=== PATIENT | female | born 1935 | race Caucasian/White ===

== ENCOUNTER → 2018-10-10 | Outpatient (CLI) | payer MEDICARE, BC, SELFPAY ==
[2018-09-22 12:45] VITALS: BMI 27.8
--- NOTE | 2018-10-10 13:26 | ECHOD_ITS ---
Reason For Study: HTN Procedure This was a 2D Doppler, Color Flow transthoracic echocardiogram. Exam performed in department. Left Ventricle Normal LV size. Left ventricular systolic function is normal. The estimated ejection fraction is 60 %. Stage 2 diastolic dysfunction. No regional wall motion abnormalities noted. Right Ventricle Normal RV size. Normal systolic function. Atria Normal left atrium. Normal right atrium. Mitral Valve Normal mitral valve. Mild (1+) eccentric mitral valve insufficiency. Tricuspid Valve Normal tricuspid valve. Pulmonic Valve Normal pulmonic valve. Great Vessels Normal aortic root. The pulmonary artery is normal size. Normal inferior vena cava. Pericardium/Pleural No pericardial effusion. MMode/2D Measurements & Calculations LVIDd: 4.7 cm IVSd: 1.1 cm Ao root diam: 3.2 cm LVIDs: 3.4 cm LVPWd: 0.98 cm RVDd: 3.7 cm FS: 28.9 % LAV(MOD-bp): 59.0 ml LA A4 area: 18.1 cm2 LA dimension(2D): 3.4 cm LAV(MOD-bp) Indexed: 34.7 ml/m2 LAV(MOD-sp2): 65.1 ml LAV(MOD-sp4): 50.9 ml RA A4 area: 15.0 cm2 Time Measurements MV dec time: 0.20 sec Doppler Measurements & Calculations MV E max asher: 104.2 cm/sec Lat Peak E' Asher: 7.3 cm/sec Med Peak E' Asher: 7.0 cm/sec MV A max asher: 125.7 cm/sec E/E' lat: 14.3 E/E' med: 14.8 MV E/A: 0.83 Ao V2 max: 139.9 cm/sec LV V1 max: 88.0 cm/sec PA V2 max: 68.5 cm/sec Ao max P.8 mmHg LV V1 max P.1 mmHg TR max asher: 260.6 cm/sec TR max P.4 mmHg Interpretation Summary Normal LV size. Left ventricular systolic function is normal. The estimated ejection fraction is 60 %. Stage 2 diastolic dysfunction. Mild (1+) eccentric mitral valve insufficiency. Ordering Physician: Forrest Baptiste Referring Physician: Edmond Ponce Performed By: Christianne Marshall, SAVAGE, RVT
== END | disposition home or self-care (01) ==
PROVIDERS: Family Provider Family Medicine; PCP Family Medicine; Referring Provider Internal Medicine Cardiovascular Disease; Visit Provider Internal Medicine Cardiovascular Disease
DX: I47.1 Supraventricular tachycardia (principal)
CPT/HCPCS: 93306